=== PATIENT | female | born 1950 | race Two or more races ===

== ENCOUNTER → 2016-12-19 | Outpatient (CLI) | payer OTHER ==
--- NOTE | 2016-12-19 14:29 | RADRPT ---
PROCEDURE: XR Hip. CLINICAL INDICATION: Left hip pain. TECHNIQUE: AP pelvis and AP and frog-leg lateral views of the left hip were obtained. COMPARISON: None FINDINGS: No acute fracture or dislocations are seen. The osseous structures are well mineralized. Mild to mo derate osteoarthritis in the bilateral hips is seen. Postsurgical changes in the lower lumbar spine is incompletely visualized. The soft tissue structures are intact. 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 RPTAT: [facility] Physician Claudia Date Time Electronically viewed and signed by Physician Claudia on 12/19/2016 14:28 /
--- NOTE | 2016-12-20 11:33 | HKNOTE ---
DATE OF SERVICE: 12/19/2016 CHIEF COMPLAINT: Left hip pain. HISTORY OF PRESENT ILLNESS: This is a 66-year-old female who is complaining of left hip pain now. Patient has had a previous lumbar discectomy approximately 6 months ago. She states that the pain i s on the side of her hip. She denies any groin pain. There is no radiation to the knee. She denies any history of trauma. She does not use any assistive devices. She is able to perform her activit ies of daily living. GAIT: Nonantalgic gait. No uses of assistive device. BACK: Healed incision, nontender over the lower lumbar, 60 degrees of forward flexion, 25 degrees o f extension, 15 degrees of right and left lateral bend, negative straight leg raise. LEFT HIP: Tender over the greater trochanter, 0 to 100 degrees range of motion, 0 to 100 degrees of flexion, 50 degrees of external rotation, 20 degrees internal rotation, negative Maribell's test, nega tive straight leg raise. MRI left hip, there is a fluid collection over the greater trochanter. There is a partial tear of t he gluteus medias tendon. Minimal degenerative joint disease. AP PELVIS X-RAY: There is minimal joint space narrowing of the left hip. No fractures or dislocati ons. LEFT HIP 2-VIEW X-RAYS: There is minimal degenerative joint disease. No fractures or dislocation. IMPRESSION: A 66-year-old female with left hip greater trochanteric bursitis. PLAN: We will request authorization for physical therapy. She was instructed to take ibuprofen as needed. She will return if she continues to have pain for a left hip trochanteric injection in the future. Dictated By: STACI NOVOA/ROCKY Conf#: [id number] DID#: [id number]
== END | disposition home or self-care (01) ==
LOC: HKI 13:52
PROVIDERS: ATTEND Orthopaedic Surgery Adult Reconstructive Orthopaedic Surgery
DX: M70.62 Trochanteric bursitis, left hip (principal); Y93.9 Activity, unspecified
CPT/HCPCS: 73502; G0463